=== PATIENT | male | born 1990 | race African-American/Black ===

== ENCOUNTER 2017-07-06 11:54 | Emergency (ER) | payer OTHER ==
[~2017-07-06] VITALS: Ht 170.2 cm; Wt 102.5 kg
[2017-07-06 12:10] VITALS: Ht 170.2 cm; Wt 102.5 kg
[2017-07-06] MEDS ORDERED: SOD CHLORIDE 0.9% 1,000 ML IV STA (12:55)
[2017-07-06 13:24] LABS: BASOPHIL # 0.1 10^3/ul (0.0-0.1); BASOPHILS % 0.7 % (0.0-2.0); EOSINOPHILS # 0.1 10^3/ul (0.0-0.5); EOSINOPHILS % 0.3 % (0.0-7.0); HEMATOCRIT 44.6 % (42.0-52.0); HEMOGLOBIN 14.9 g/dl (14.0-18.0); LYMPHOCYTES # 2.8 10^3/ul (0.8-2.9); LYMPHOCYTES % 16.3 % (15.0-51.0); MEAN CORPUSCULAR HEMOGLOBIN 29.6 pg (29.0-33.0); MEAN CORPUSCULAR HGB CONC 33.4 g/dl (32.0-37.0); MEAN CORPUSCULAR VOLUME 88.7 fl (82.0-101.0); MEAN PLATELET VOLUME 10.6 fl (7.4-10.4); MONOCYTE # 1.3 10^3/ul (0.3-0.9); MONOCYTES % 7.3 % (0.0-11.0); NEUTROPHIL # 12.8 10^3/ul (1.6-7.5); NEUTROPHILS % 74.7 % (39.0-77.0); PLATELET COUNT 231 10^3/UL (140-415); RED BLOOD COUNT 5.03 10^6/ul (4.70-6.10); RED CELL DISTRIBUTION WIDTH 15.1 % (11.5-14.5); WHITE BLOOD COUNT 17.1 10^3/ul (4.8-10.8)
[2017-07-06 13:46] LABS: ANION GAP 18 (8-16); BLOOD UREA NITROGEN 16 mg/dl (7-20); CALCIUM 8.5 mg/dl (8.4-10.2); CARBON DIOXIDE 23 mmol/L (21-31); CHLORIDE 105 mmol/L (97-110); CREATININE 0.96 mg/dl (0.61-1.24); GLUCOSE 101 mg/dl (70-220); POTASSIUM 3.9 mmol/L (3.5-5.1); SODIUM 142 mmol/L (135-144)
--- NOTE | 2017-07-06 13:46 | RADRPT ---
PROCEDURE: Chest x-ray CLINICAL INDICATION: Dizziness and syncope. TECHNIQUE: One-view frontal. COMPARISON: None available FINDINGS: The cardiac silhouette is normal. No infiltrates are noted. No hilar abnormalities are identified. No pneumothorax or pleural effusions are visualized. IMPRESSION: 1. No active cardiopulmonary changes. RPTAT: HGSG .Jeyson Joseph MD, MD Date Time Electronically viewed and signed by .Jeyson Joseph MD, MD on 07/06/2017 13:46 .G/
[2017-07-06 14:00] LABS: TROPONIN-I < 0.012 ng/ml (0.00-0.12)
[2017-07-06 14:15] VITALS: BP 111/65; PULSE 88; RESP 18
--- NOTE | 2017-07-06 14:51 | ERD ---
ER Documentation Chief Complaint Chief Complaint DIZZINESS AFTER GIVEN PLASMA ABOUT 1HR HPI 27-year-old male complaining of dizziness is 2 hours. Patient stated that the dizziness onset about 20 minutes after he donated plasma. He described dizziness as feeling weak, difficult to concentrate, and about to pass out. But denies syncope. Patient reports feeling heaviness in the chest, but denies chest pain or shortness of breath. He thinks that he is dehydrated, but states that he has drank "2 L" water since. Patient stated that he had donated plasma in the past without similar symptoms. He also had similar dizziness in the past that is not related to plasma donation, which he also attributed to dehydration. Denies fever or chills. Denies shortness of breath. Denies abdominal pain, vomiting, or diarrhea. Denies vertigo. ROS All systems reviewed and are negative except as per history of present illness. Allergies Allergies: Coded Allergies: Penicillins (Unverified Allergy, Unknown, 07/06/17) PMhx/Soc History of Surgery: Yes (left hand) Hx Neurological Disorder: No Hx Respiratory Disorders: Yes (asthma) Hx Cardiac Disorders: No Hx Psychiatric Problems: No Hx Miscellaneous Medical Probl: No Hx Alcohol Use: Yes Hx Substance Use: No Hx Tobacco Use: Yes Smoking Status: Current every day smoker Physical Exam Vitals Vital Signs Date Time Temp Pulse Resp B/P Pulse Ox O2 Delivery O2 Flow Rate FiO2 07/06/17 14:15 88 18 111/65 98 Room Air 07/06/17 12:10 98.5 117 18 109/70 97 Physical Exam General: Well-developed, well-nourished, conscious and coherent, in no distress Skin: Warm and dry without rash, good texture and turgor Head: Normocephalic without evidence of trauma Eyes: Sclera and conjunctivae normal; pupils equal, round, and reactive to light; extraocular movements are intact Mouth/throat: Lips dry. Mucous membranes are moist. Posterior pharynx clear without erythema or exudates Neck: Supple without meningismus or adenopathy. Carotids are equal. Trachea midline. No bruits or JVD Chest: Normal AP diameter. Good expansion without retractions. Nontender. Lungs are clear to auscultate bilaterally with good tidal volume Heart: Regular rate and rhythm. No murmur, rub, or gallops heard Abdomen: Soft and nontender without masses, guarding, or rebound. Bowel sounds are active. No hepatosplenomegaly Back: Without spinal or CVA tenderness Pelvis: Nontender to palpation and stable to compression Extremities: Full range of motion. Good strength bilaterally. No clubbing, cyanosis, or edema. Peripheral pulses are intact. Sensation intact Neuro: Alert and oriented 4; GCS 15. Cranial nerves II - XII intact. Motor sensory exam nonfocal. Moves all extremities. Deep tendon reflexes 2+ in all extremities. Speech clear. No pronator drift. Gait steady. Result Diagram: 07/06/17 1315 07/06/17 1315 Results 24 hrs Laboratory Tests Test 07/06/17 13:10 07/06/17 13:15 Bedside Glucose 101mg/dL White Blood Count 17.110^3/ul Red Blood Count 5.0310^6/ul Hemoglobin 14.9g/dl Hematocrit 44.6% Mean Corpuscular Volume 88.7fl Mean Corpuscular Hemoglobin 29.6pg Mean Corpuscular Hemoglobin Concent 33.4g/dl Red Cell Distribution Width 15.1% Platelet Count 66927^3/UL Mean Platelet Volume 10.6fl Neutrophils % 74.7% Lymphocytes % 16.3% Monocytes % 7.3% Eosinophils % 0.3% Basophils % 0.7% Nucleated Red Blood Cells % 0.0/100WBC Neutrophils # 12.810^3/ul Lymphocytes # 2.810^3/ul Monocytes # 1.310^3/ul Eosinophils # 0.110^3/ul Basophils # 0.110^3/ul Nucleated Red Blood Cells # 0.010^3/ul Sodium Level 142mmol/L Potassium Level 3.9mmol/L Chloride Level 105mmol/L Carbon Dioxide Level 23mmol/L Anion Gap 18 Blood Urea Nitrogen 16mg/dl Creatinine 0.96mg/dl Glucose Level 101mg/dl Calcium Level 8.5mg/dl Troponin I < 0.012ng/ml Current Medications Medications (Trade) Dose Ordered Sig/Michael Route PRN Reason Start Time Stop Time Status Last Admin Dose Admin Sodium Chloride (NS) 1,000 ml @ 1,000 mls/hr Q1H STAT IV 07/06/17 12:55 07/06/17 13:54 DC 07/06/17 13:18 Procedures/MDM Well-appearing 27-year-old male complaining of feeling dizzy, and chest tightness after plasma donation. EKG: Sinus tachycardia rate 10 2 bpm, normal axis. No ST segment elevation or depression. No ectopic beats. No QT prolongation. No other EKG abnormalities. EKG read by Dr. Jc. X-ray x-rays negative. CBC is noted for slight elevated WBC of 17.1, likely secondary to recent plasma donation. BMP and troponin are negative. Differentials include but not limited to brainstem ischemia, multiple sclerosis , benign positional vertigo, Mnire's disease, vestibular neuritis, acoustic neuroma, vertebral artery dissection, or anxiety. Patient was given 1 L normal saline bolus in the ED. Patient reports feeling better after normal saline. His heart rate also dropped from 117 bpm on arrival to 88 bpm. Patient appears well, stable for discharge and outpatient management. Medical decision making shared with patient and family. Education provided to patient and family. Patient and family expressed understanding of the plan. Medications on discharge: None. Follow-up: Primary care provider in 2-3 days or return to ED if worse. Disclaimer: Inadvertent spelling and grammatical errors are likely due to EHR/ dictation software use and do not reflect on the overall quality of patient care. Also, please note that the electronic time recorded on this note does not necessarily reflect the actual time of the patient encounter. Departure Diagnosis: Primary Impression: Dizziness Condition: Stable Patient Instructions: Possible Causes of Dizziness or Fainting Referrals: [facility] YOU HAVE RECEIVED A MEDICAL SCREENING EXAM AND THE RESULTS INDICATE THAT YOU DO NOT HAVE A CONDITION THAT REQUIRES URGENT TREATMENT IN THE EMERGENCY DEPARTMENT. FURTHER EVALUATION AND TREATMENT OF YOUR CONDITION CAN WAIT UNTIL YOU ARE SEEN IN YOUR DOCTORS OFFICE WITHIN THE NEXT 1-2 DAYS. IT IS YOUR RESPONSIBILITY TO MAKE AN APPOINTMENT FOR FOLOW-UP CARE. IF YOU HAVE A PRIMARY DOCTOR --you should call your primary doctor and schedule an appointment IF YOU DO NOT HAVE A PRIMARY DOCTOR YOU CAN CALL OUR PHYSICIAN REFERRAL HOTLINE AT IF YOU CAN NOT AFFORD TO SEE A PHYSICIAN YOU CAN CHOSE FROM THE FOLLOWING [facility] [address] [facility]. [facility] [address] [facility]. [facility] [address] [facility] [address] [facility]. [facility] [address] [facility] Additional Instructions: Call your primary care doctor TOMORROW for an appointment during the next 2-3 days.See the doctor sooner or return here if your condition worsens before your appointment time. SÁNCHEZ TELLO. PAPO Jul 06, 2017 14:46
== END 2017-07-06 14:30 | disposition home or self-care (01) ==
LOC: FTE 11:54
DX: R42 Dizziness and giddiness (principal); J45.909 Unspecified asthma, uncomplicated; F17.210 Nicotine dependence, cigarettes, uncomplicated
CPT/HCPCS: 36415; 71010; 80048; 82962; 84484; 85025; 93005; J7030; Z7502